=== PATIENT | female | born 1985 | race American Indian/Alaskan Native ===

== ENCOUNTER 2018-12-21 09:23 | Outpatient (CLI) | payer MEDICAID ==
[2018-12-21 10:19] VITALS: BP 102/63
[2018-12-21] MEDS ORDERED: LACTATED RINGERS 500 ML IV ONE (10:54)
== END 2018-12-21 11:10 | disposition home or self-care (01) ==
LOC: TRG 09:23
PROVIDERS: ATTEND Obstetrics & Gynecology
DX: O47.03 False labor before 37 completed weeks of gestation, third trimester (principal); Z3A.33 33 weeks gestation of pregnancy
CPT/HCPCS: 59025

== ENCOUNTER 2019-01-29 14:34 | Outpatient (CLI) | payer MEDICAID ==
[2019-01-29] MEDS ORDERED: LACTATED RINGERS 1,000 ML ONE (16:29)
[2019-01-29] MEDS ORDERED: LACTATED RINGERS ONE (16:29)
[2019-01-29] MEDS ORDERED: LACTATED RINGERS 1,000 ML IV ONE (16:42)
[2019-01-29 17:51] LABS: Bacteria,Urine 2+ /HPF (Negative); Bilirubin,Urine NEG (Negative); Blood,Urine NEG (Negative); Color,Urine Yellow (Yellow); Mucus,Urine FEW /HPF; Protein,Urine <15 mg/dL mg/dL (Negative); Urobilinogen,Urine < 2.0 mg/dL (<2.0)
--- NOTE | 2019-01-29 18:12 | Ultrasound Report ---
PROCEDURE: US OB LIMITED TECHNIQUE: Limited OB ultrasound HISTORY: tachycardia . Estimated age is 38 weeks 6 days. Evaluate MIKE and BPP COMPARISONS: None FINDINGS: LMP 05/02/2018 clinical Age : 38W 6 D LMP EDC 02/06/2019 Biophysical profile scoring 2 movement 2 tone 2 breathing 2fluid 8/8 overall score Presentation: Cephalic Activity: Monitored Placental location: Anterior Cardiac motion: 143 BPM using M-mode doppler Amniotic Fluid Volume: Adequate MIKE: 11.1 cm IMPRESSION: Single viable at 38 weeks 6 days with 8/8 biophysical profile score and MIKE 11.1 cm This document is electronically signed by Gali Shirley MD., January 29 2019 06:10:22 PM ET
--- NOTE | 2019-01-29 18:13 | Ultrasound Report ---
PROCEDURE: US OB BPP WO NON-STRESS TECHNIQUE: Limited OB ultrasound HISTORY: tachycardia . Estimated age is 38 weeks 6 days. Evaluate MIKE and BPP COMPARISONS: None FINDINGS: LMP 05/02/2018 clinical Age : 38W 6 D LMP EDC 02/06/2019 Biophysical profile scoring 2 movement 2 tone 2 breathing 2fluid 8/8 overall score Presentation: Cephalic Activity: Monitored Placental location: Anterior Cardiac motion: 143 BPM using M-mode doppler Amniotic Fluid Volume: Adequate MIKE: 11.1 cm IMPRESSION: Single viable at 38 weeks 6 days with 8/8 biophysical profile score and MIKE 11.1 cm This document is electronically signed by Gali Shirley MD., January 29 2019 06:11:32 PM ET
[2019-01-29 20:46] VITALS: BP 104/52
== END 2019-01-29 21:18 | disposition home or self-care (01) ==
LOC: TRG 14:34
PROVIDERS: ATTEND Obstetrics & Gynecology
DX: O98.313 Other infections with a predominantly sexual mode of transmission complicating pregnancy, third trimester (principal); A63.0 Anogenital (venereal) warts; O36.8330 Maternal care for abnormalities of the fetal heart rate or rhythm, third trimester, not applicable or unspecified; O47.1 False labor at or after 37 completed weeks of gestation; Z3A.38 38 weeks gestation of pregnancy
CPT/HCPCS: 59025; 76815; 76819; 81001; J7120

== ENCOUNTER 2019-01-30 13:09 | Outpatient (CLI) | payer MEDICAID ==
[2019-01-30 13:30] VITALS: BP 115/59
== END 2019-01-30 14:35 | disposition home or self-care (01) ==
LOC: TRG 13:09
PROVIDERS: ATTEND Obstetrics & Gynecology
DX: O47.1 False labor at or after 37 completed weeks of gestation (principal); O99.513 Diseases of the respiratory system complicating pregnancy, third trimester; J45.909 Unspecified asthma, uncomplicated; Z3A.38 38 weeks gestation of pregnancy
CPT/HCPCS: 59025

== ENCOUNTER 2019-02-09 07:48 | Inpatient (IN) | payer MEDICAID, OTHER ==
[2019-02-09 11:33] LABS: Basophils # (Auto) 0.1 K/mm3 (0.0-0.1); Basophils % (Auto) 0.6 % (0.0-1.8); Eosinophils # (Auto) 0.2 K/mm3 (0.0-0.4); Eosinophils % (Auto) 1.8 % (0.0-4.3); Hematocrit 32.9 % (30.3-42.9); Hemoglobin 10.6 gm/dl (10.1-14.3); Lymphocytes # (Auto) 1.4 K/mm3 (1.2-5.4); Lymphocytes % (Auto) 15.1 % (13.4-35.0); Mean Corpuscular HGB Conc 32 % (30-34); Mean Corpuscular Volume 73 fl (79-97); Monocytes # (Auto) 0.7 K/mm3 (0.0-0.8); Monocytes % (Auto) 7.2 % (0.0-7.3); Platelet Count 294 K/mm3 (140-440); Red Blood Count 4.54 M/mm3 (3.65-5.03); Red Cell Distribution Width 17.7 % (13.2-15.2)
[2019-02-09 11:45] LABS: Amphetamine Screen,Urine PRESUMPTIVE NEGATIVE; Benzodiazepines Screen,Urine PRESUMPTIVE NEGATIVE; Cannabinoid Screen,Urine PRESUMPTIVE NEGATIVE; Cocaine Screen,Urine PRESUMPTIVE NEGATIVE; Methadone Screen,Urine PRESUMPTIVE NEGATIVE; Opiate Screen,Urine PRESUMPTIVE NEGATIVE
[2019-02-09 11:46] LABS: Bacteria,Urine 2+ /HPF (Negative); Bilirubin,Urine NEG (Negative); Blood,Urine NEG (Negative); Color,Urine Straw (Yellow); Protein,Urine <15 mg/dL mg/dL (Negative); Urobilinogen,Urine < 2.0 mg/dL (<2.0); WBC,Urine < 1.0 /HPF (0.0-6.0)
[2019-02-09 11:51] LABS: Alanine Aminotransferase 10 units/L (7-56); Albumin 3.2 g/dL (3.9-5); BUN/Creatinine Ratio 7; Blood Urea Nitrogen 4 mg/dL (7-17); Calcium 9.1 mg/dL (8.4-10.2); Hemolysis Index 7
--- NOTE | 2019-02-09 12:34 | Ultrasound Report ---
PROCEDURE: US OB LIMITED HISTORY: MIKE, placental integrity FINDINGS: Real-time ultrasound the pelvis was performed with attention to the gravid uterus. These images demonstrate a live intrauterine gestation in cephalic lie, with biophysical profile of 8 of 8. cardiac activity is present at 138 bpm. There is an anterior placenta, grade 3 placenta. There is no placental abruption. Amniotic fluid index was 11.0 cm. IMPRESSION: Biophysical profile 8 of 8 Amniotic fluid index 11.0 cm No placental abruption This document is electronically signed by Rex Delong MD., February 09 2019 12:32:36 PM ET
--- NOTE | 2019-02-09 12:34 | Ultrasound Report ---
PROCEDURE: US OB BPP WO NON-STRESS HISTORY: BPP FINDINGS: Real-time ultrasound the pelvis was performed with attention to the gravid uterus. These images demonstrate a live intrauterine gestation in cephalic lie, with biophysical profile of 8 of 8. cardiac activity is present at 138 bpm. There is an anterior placenta, grade 3 placenta. There is no placental abruption. Amniotic fluid index was 11.0 cm. IMPRESSION: Biophysical profile 8 of 8 Amniotic fluid index 11.0 cm No placental abruption This document is electronically signed by Rex Delong MD., February 09 2019 12:32:11 PM ET
--- NOTE | 2019-02-09 12:53 | History and Physical Report ---
History of Present Illness Date of examination: 02/09/19 Date of admission: 02/09/2019 Chief complaint: Contractions, right leg pain History of present illness: 33 year old female presents to L&D complaining of contractions and right calf pain. States calf pain began last night and contractions began this morning. Patient denies leaking of fluid or vaginal bleeding. Patient reports good movement today but states she experienced decreased movement yesterday and the day before. Patient denies falls or abdominal trauma. Patient denies headache, dizziness, chest pain, SOB, cough, or fatigue. Patient states she receives regular care at [facility]. No records are available. Patient states she is scheduled for primary section tomorrow due to extensive condyloma in genital area. LMP 05/02/2018. EDC 02/06/2019 (pt. states this was based on ultrasound done at 20 weeks gestation). We do not yet have a copy of that US since no records available today in L&D. significant for the following: Obesity (care was co-managed with [facility]), decreased movement, extensive genital condyloma, bleeding in first trimester (subchorionic hemorrhage), anemia (treated with oral iron), and asthma (treated with Albuterol inhaler). Patient states her current medications at home are vitamins, iron supplements, and albuterol. labs are not available, but records have been requested and should be available by tomorrow morning. We do have a GBS test result; GBS is positive. 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 denies: abnormal PAP smear, chlamydia, gonorrhea, hepatitis B, hepatitis C, herpes, HIV, syphilis, trichomonas Family/Genetic History: diabetes, hypertension, cancer Social history: single, lives with family, full code. denies: smoking, alcohol abuse, prescription drug abuse, IV drug use - Obstetrical History Expected Date of Delivery: 02/06/19 (Per patient report (records have been requested)) Actual Gestation: 40 Week(s) 3 Day(s) : 3 Para: 0 Hx # Term Pregnancies: 0 Number of Pregnancies: 0 Spontaneous Abortions: 2 (2 SABs (first trimester)) Induced : 0 Number of Living Children: 0 Medications and Allergies Allergies Allergy/AdvReac Type Severity Reaction Status Date / Time azithromycin [From Zithromax] Allergy Swelling Verified 01/10/19 19:45 Home Medications Medication Instructions Recorded Confirmed Last Taken Type Vit-Fe Fumar-FA [ 1 tab PO DAILY MDD 1 01/11/19 02/09/1902/09 06:00 History Vitamin] 1 Review of Systems All systems: negative (contractions and right calf pain) - Vital Signs Vital signs: Vital Signs Pulse BP 120 H 118/71 02/09/19 08:15 02/09/19 08:15 Temp Pulse Resp BP Pulse Ox 98.2 F 112 H 18 118/71 92 02/09/19 11:13 02/09/19 10:18 02/09/19 11:13 02/09/19 08:15 02/09/19 10:18 - Physical Exam Cardiovascular: Regular rate, Normal S1, Normal S2, No murmurs Lungs: Positive: Clear to auscultation Abdomen: Positive: normal appearance, soft, normal bowel sounds. Negative: distention, tenderness, guarding, rigidity Genitourinary (Female): Positive: other (extensive vulvar condyloma) Uterus: Positive: enlarged (gravid) Extremities: Positive: normal. Negative: tenderness (negative lonnie's sign, no palpable cord, no erythema), edema - Obstetrical FHR: category 1 FHR comments: BPP 8/8; MIKE 11 cm; no signs of abruption on US; US EGA 36 weeks, 5 days Uterine Contraction Monitor Mode: External Cervical Dilatation: 0 (SVE: closed, thick, high per RN upon pt. arrival) Uterine Contraction Pattern: Irregular (resolved with rest) Uterine Contraction Intensity: Mild Results Result Diagrams: 02/09/19 11:10 02/09/19 11:10 Abnormal lab results 02/09/19 02/09/19 Range/Units 11:10 11:10 MCV 73 L (79-97) fl MCH 23 L (28-32) pg RDW 17.7 H (13.2-15.2) % Seg Neutrophils % 75.3 H (40.0-70.0) % Sodium 136 L (137-145) mmol/L BUN 4 L (7-17) mg/dL Creatinine 0.6 L (0.7-1.2) mg/dL Alkaline Phosphatase 155 H (35-129) units/L Albumin 3.2 L (3.9-5) g/dL All other labs normal. Assessment and Plan A: at 40 weeks, 3 days gestation based on patient's stated EDC of 02/06/19 (our US today in L&D has CGA of 36 weeks, 5 days). Not in active labor. GBS positive. Extensive vulvar condyloma; due to vulvar condyloma patient was scheduled for primary delivery on 02/10/19. No records available in L&D. Maternal obesity. Mild maternal tachycardia. Right leg pain. Mild anemia of . Asthma (uses Albuterol inhaler rarely). P: Admit patient. Obtain records from [facility]. Venous doppler US of right lower extremity. Continuous EFM. IV hydration. VS monitoring. Keep patient in hospital overnight until able to obtain records; primary OB will be back radiation control specialist tomorrow AM and can obtain records (with confirmation of EDC) prior to scheduled primary C/S tomorrow. Consulted with Dr. Dugan re: all of the above and interventions taken and he states he is in agreement with plan of observing patient overnight until primary OB can obtain records, then proceed with scheduled primary C/S once confirmation of patient's EDC is obtained.
[2019-02-09] MEDS ORDERED: PEPCID IV ONE (13:00)
[2019-02-09] MEDS ORDERED: PITOCin/NS 20 UNIT/1000ML DRIP 20 UNITS/1,000 ML BAG IV SCH ×2 (13:00)
[2019-02-09] MEDS ORDERED: REGLAN IV ONE (13:00)
[2019-02-09] MEDS ORDERED: LACTATED RINGERS 1,000 ML IV SCH (13:00)
[2019-02-09] MEDS ORDERED: BICITRA PO ONE (13:00)
[2019-02-09] MEDS ORDERED: ANCEF/STERILE WATER 2 GM/20 ML 2 GM/20 ML SYRINGE IV NR (13:00)
--- NOTE | 2019-02-09 14:03 | Ultrasound Report ---
PROCEDURE: US OB FOLLOW UP TECHNIQUE: Limited obstetrical ultrasound performed. HISTORY: Calculate gestational age COMPARISON: None FINDINGS: There is a single live intrauterine in cephalic position. Clinical indication provided ANIL of 02/06/2019-40 weeks 3 days. Today's measurements BPD: 9.04 cm-36 weeks 4 days HC: 32.75 cm-37 weeks 1 day. AC: 32.92 cm-36 weeks 6 days FL: 7.05 cm-36 weeks 1 day Average age by ultrasound-36 weeks 5 days with corresponding ANIL of 03/04/2019. Estimated weight is 3002 mg which is 7th percentile for clinical age of 40 weeks 3 days. Cardiac activity documented at 135 bpm. IMPRESSION: Today's measurements correspond to average age of 36 weeks 5 days. This is somewhat disc repant with provided clinical age of 40 weeks 3 days. The estimated weight of 3002 g is 7th per centile for this gestational age. Correlate clinically and with history. Note that I have several divine or exams to compare but no measurements were obtained on any of the available prior studies. This document is electronically signed by Ree Nicholson MD., February 09 2019 02:01:39 PM ET
--- NOTE | 2019-02-09 15:16 | Vascular Lab Report ---
PROCEDURE: VL VENOUS DUPLEX LE RT TECHNIQUE: Grayscale, color flow and spectral waveform images were obtained of right lower extremity . HISTORY: Right leg pain COMPARISON: None FINDINGS: There is no deep venous thrombosis seen in the right lower extremity. Flow is demonstrated by color flow and spectral waveform imaging. There is appropriate wall compression and augmentation. There is no superficial venous thrombus seen. IMPRESSION: There is no evidence for DVT in right lower extremity. This document is electronically signed by Ree Nicholson MD., February 09 2019 03:14:07 PM ET
--- NOTE | 2019-02-09 16:02 | Anesthesia Consultation ---
Anesthesia Consult and Med Hx Date of service: 02/09/19 - Airway Anesthetic Teeth Evaluation: Crowns ROM Head & Neck: Adequate Mental/Hyoid Distance: Adequate Mallampati Class: Class II Intubation Access Assessment: Probably Good - Pulmonary Exam CTA: Yes - Cardiac Exam Cardiac Exam: RRR - Pre-Operative Health Status ASA Pre-Surgery Classification: ASA2 Proposed Anesthetic Plan: Epidural - Pulmonary Hx Smoking: No Hx Asthma: Yes (no meds at this time or meds) Hx Respiratory Symptoms: No SOB: No COPD: No Home Oxygen Therapy: No Hx Pneumonia: No Hx Sleep Apnea: No - Cardiovascular System Hx Hypertension: No Hx Coronary Artery Disease: No Hx Heart Attack/AMI: No Hx Angina: No Hx Percutaneous Transluminal Coronary Angioplasty (PTCA): No Hx Cardia Arrhythmia: No Hx Pacemaker: No Hx Internal Defibrillator: No Hx Valvular Heart Disease: No Hx Heart Murmur: No Hx Peripheral Vascular Disease: No - Central Nervous System Hx Neuromuscular Disorder: No Hx Seizures: No CVA: No Hx Back Pain: No Hx Psychiatric Problems: No - Gastrointestinal Hx Ulcer: No Hx Gastroesophageal Reflux Disease: No - Endocrine Hx Renal Disease: No Hx End Stage Renal Disease: No Hx Cirrhosis: No Hx Liver Disease: No Hx Insulin Dependent Diabetes: No Hx Non-Insulin Dependent Diabetes: No Hx Thyroid Disease: No Hx Hypothyroidism: No Hx Hyperthyroidism: No - Hematic Hx Anemia: Yes (with meds) Hx Sickle Cell Disease: No - Other Systems Hx Alcohol Use: No Hx Substance Use: No Hx Cancer: No Hx Obesity: No
--- NOTE | 2019-02-09 16:03 | Anesthesia Day of Surgery ---
Anesthesia Day of Surgery - Day of Surgery Patient Examined: Yes Patient H&P Reviewed: Yes Patient is NPO: Yes (since 12 mn on 02/09) Beta Blockers: No Cardiac Clearance: No Pulmonary Clearance: No Nicholas's Test: N/A
[2019-02-10] MEDS: LACTATED RINGERS 1,000 ML IV SCH ×2 (04:30→07:15)
[2019-02-10] MEDS ORDERED: BICITRA PO ONE (05:09)
[2019-02-10] MEDS ORDERED: PEPCID IV ONE (05:10)
[2019-02-10] MEDS ORDERED: REGLAN IV ONE (05:10)
[2019-02-10] MEDS ORDERED: PITOCin/NS 20 UNIT/1000ML DRIP 20 UNITS/1,000 ML BAG IV SCH ×2 (07:00→10:00)
[2019-02-10] MEDS ORDERED: NEO SYNEPHRINE/NS Syringe(OR USE) IV ONE ×2 (09:17→09:56)
[2019-02-10] MEDS ORDERED: QUELICIN ONE (09:18)
[2019-02-10] MEDS ORDERED: XYLOCAINE MPF 2% ONE ×2 (09:21)
[2019-02-10] MEDS ORDERED: D5LR 1,000 ML IV SCH (10:00)
--- NOTE | 2019-02-10 10:00 | Operative Report ---
Operative Report Operative Report: Date of procedure: 02/10/2019 Pre-operative diagnosis: 1. Intrauterine at 40-4/7 weeks 2. Extens saji vaginal condylomas 3. Positive GBS Post-operative diagnosis: Same Procedure name(s): Primary low transverse section Surgeon: Rodriguez Borrero MD Assembly Cleaner: None Anesthesia: Spinal anesthesia by Dr. Reyes EBL: 700 mL Findings: A 3058 g male infant Apgars 8 at 1 minute 9 at 5 minutes. Clear amniotic fluid. Normal uterus. Normal tubes and ovaries bilaterally. Procedure: After the patient was prepped and draped in usual sterile fashion, and after satisfactory level of epidural anesthesia was obtained, the skin knife was used to make a transverse skin incision. The incision was excised down to layer of the fascia, which was nicked in the midline and extended laterally using the Bovie cautery. The rectus muscles were dissected off the rectus fascia both superiorly and inferiorly. The rectus bellies in the midline, and the peritoneum was entered under direct visualization. The peritoneal incision was extended superiorly and inferiorly. A bladder flap was created and the bladder blade was then placed. The uterus was scored in a curvilinear linear fashion, entered in the midline revealing clear amniotic fluid. The 's head was delivered onto the surgical field, and the oropharynx and nasopharynx were bulb suctioned. The rest of the 's body was delivered, cord was doubly clamped and cut and the infant was handed to the waiting respiratory team. Cord blood was then obtained. The placenta was manually removed from the uterus, and the uterus removed from its normal anatomical position. After gentle uterine lavage, the incision was inspected and found to be without extensions. It was then closed in 2 layers using 0 Vicryl suture in a running interlocking fashion, the second layer imbricating the first. After good hemostasis was achieved, copious amounts or irrigation was performed, and the gutters were suctioned free of blood and blood clots. Tisseel sealant was sprayed across the uterine incision. The uterus was then returned to its normal anatomical position, and after excellent hemostasis assured, the peritoneum was re-approximated using 3-0 Vicryl suture in a running interlocking fashion, and then the rectus muscles were re-approximated using 3-0 Vicryl suture in a [id number] configuration. The fascia was then re- approximated using 0 Vicryl suture in running interlocking fashion. The subcutaneous layer was made hemostatic using Bovie cautery, the Tisseel sealant was sprayed across the fascial incision and the skin edges re-approximated using 4-0 Vicryl suture in a sub-cuticular fashion. Patient tolerated the procedure well was transported to recovery in stable condition.
[2019-02-10] MEDS ORDERED: NACL 0.9% 1000 ML 1,000 ML ONE (10:20)
--- NOTE | 2019-02-10 10:23 | Post Anesthesia Evaluation ---
- Post Anesthesia Evaluation Patient Participated: Yes Airway Patent: Yes Stable Respiratory Function: Yes Nausea/Vomiting: No Temp > 96.8F: Yes Pain Manageable: Yes Adequeate Hydration: Yes Anesthesia Complications: No Block Receding Appropriately: Yes Patient on Ventilator: No
[2019-02-10] MEDS ORDERED: TUCKS PAD TP PRN (11:00)
[2019-02-10] MEDS ORDERED: BENADRYL IV PRN (11:00)
[2019-02-10] MEDS ORDERED: DILAUDID IV PRN ×2 (11:00)
[2019-02-10] MEDS ORDERED: TYLENOL PO PRN (11:00)
[2019-02-10] MEDS ORDERED: MYLICON PO PRN (11:30)
[2019-02-10] MEDS ORDERED: PHENERGAN PR PRN (11:30)
[2019-02-10] MEDS ORDERED: PHENERGAN PO PRN (11:30)
[2019-02-10] MEDS ORDERED: NARCAN 0.4 MG/1 ML IV PRN ×2 (11:30)
[2019-02-10] MEDS ORDERED: LANSINOH TP PRN (11:30)
[2019-02-10] MEDS ORDERED: TORADOL IV PRN (11:30)
[2019-02-10] MEDS ORDERED: SODIUM CHLORIDE FLUSH SYRINGE 10 ML IV PRN ×2 (12:00)
[2019-02-10] MEDS ORDERED: ZOFRAN IV PRN (12:00)
[2019-02-10] MEDS: PERCOCET 5/325 PO PRN (18:26)
[2019-02-10] MEDS: ANCEF/NS 1 GM/50 ML 1 GM/50 ML BAG IV SCH (18:30)
[2019-02-10 21:14] LABS: Hematocrit 28.8 % (30.3-42.9); Hemoglobin 9.1 gm/dl (10.1-14.3)
[2019-02-10] MEDS: IBUPROFEN PO PRN (21:43)
[2019-02-10] MEDS ORDERED: SENOKOT PO PRN (22:00)
[2019-02-10] MEDS ORDERED: MILK OF MAGNESIA PO PRN (22:00)
[2019-02-11] MEDS: PERCOCET 5/325 PO PRN ×3 (00:03→16:27)
[2019-02-11] MEDS: ANCEF/NS 1 GM/50 ML 1 GM/50 ML BAG IV SCH (02:06)
[2019-02-11] MEDS ORDERED: BOOSTRIX IM ONE (06:00)
--- NOTE | 2019-02-11 09:08 | Progress Note ---
Assessment and Plan - Patient Problems (1) Status post Onset Date: 02/11/19 Current Visit: Yes Status: Resolved Plan to address problem: A: S/P C Section - POD #1 Doing well Asymptomatic anemia - stable P: Continue RPOC Anticipate discharge in 24-48hrs (2) Acute blood loss anemia Onset Date: 02/11/19 Current Visit: Yes Status: Resolved Subjective - Subjective Date of service: 02/11/19 Principal diagnosis: s/p C Section - POD #1 Interval history: Pt is feeling well without complaints. She is tolerating a reg diet without nausea or vomiting, ambulating and voiding without difficulty. Patient reports: appetite normal, voiding normally, pain well controlled, flatus, ambulating normally, no dizzy ambulation, no nauseated : doing well, nursing well, bottle feeding Objective - Vital Signs Latest vital signs: Vital Signs Temp Pulse Resp BP BP Pulse Ox 02/11/19 07:33 97.9 F 91 H 20 109/54 99 02/11/19 05:50 20 02/11/19 04:35 98.2 F 80 20 104/72 98 02/11/19 00:03 18 02/10/19 23:25 98.2 F 93 H 20 114/72 96 02/10/19 21:43 20 02/10/19 20:00 98.2 F 109 H 20 126/73 96 02/10/19 18:26 20 02/10/19 16:00 97.4 F L 101 H 18 104/61 02/10/19 14:00 18 02/10/19 11:59 97.6 F 20 118/73 02/10/19 11:46 20 Intake and Output 02/10/19 02/11/19 02/11/19 22:59 06:59 14:59 Intake Total 370 480 Output Total 700 1400 Balance -330 -920 Intake: IV 50 ANCEF/NS 1 GM/50 ML 1 gm 50 In 50 ml @ 100 mls/hr IV Q8H [facility] Rx#:[id number] Oral 320 480 Output: Urine 700 1400 Indwelling Catheter 700 Void 1400 Other: Total, Intake Amount 320 240 Total, Output Amount 300 800 # Voids Indwelling Catheter 1 Void 2 - Exam Cardiovascular: Present: Regular rate Abdomen: Present: normal appearance, soft Uterus: Present: normal, firm, fundal height below umbilicus Extremities: Present: normal Incision: Present: normal, dry, intact, dressed - Labs Labs: Abnormal lab results 02/10/19 Range/Units 20:44 Hgb 9.1 L (10.1-14.3) gm/dl Hct 28.8 L (30.3-42.9) % Laboratory Tests 02/09/19 02/09/19 02/09/19 11:10 11:10 11:10 WBC 9.5 RBC 4.54 Hgb 10.6 Hct 32.9 MCV 73 L MCH 23 L MCHC 32 RDW 17.7 H Plt Count 294 Lymph % (Auto) 15.1 [place] % (Auto) 7.2 Eos % (Auto) 1.8 Baso % (Auto) 0.6 Lymph # 1.4 [place] # 0.7 Eos # 0.2 Baso # 0.1 Seg Neutrophils % 75.3 H Seg Neutrophils # 7.2 Sodium Potassium Chloride Carbon Dioxide Anion Gap BUN Creatinine Estimated GFR BUN/Creatinine Ratio Glucose Calcium Total Bilirubin AST ALT Alkaline Phosphatase Total Protein Albumin Albumin/Globulin Ratio Urine Color Straw Urine Turbidity Clear Urine pH 7.0 Ur Specific [place] 1.005 Urine Protein <15 mg/dl Urine Glucose (UA) Neg Urine Ketones Neg Urine Blood Neg Urine Nitrite Neg Urine Bilirubin Neg Urine Urobilinogen < 2.0 Ur Leukocyte Esterase Neg Urine WBC (Auto) < 1.0 Urine RBC (Auto) 1.0 U Epithel Cells (Auto) 3.0 Urine Bacteria (Auto) 2+ Urine Opiates Screen Presumptive negative Urine Methadone Screen Presumptive negative Ur Barbiturates Screen Presumptive negative Ur Phencyclidine Scrn Presumptive negative Ur Amphetamines Screen Presumptive negative U Benzodiazepines Scrn Presumptive negative Urine Cocaine Screen Presumptive negative U Marijuana (THC) Screen Presumptive negative Drugs of Abuse Note Disclamer RPR Blood Type Antibody Screen 02/09/19 02/09/19 02/09/19 11:10 12:50 15:13 WBC RBC Hgb Hct MCV MCH MCHC RDW Plt Count Lymph % (Auto) [place] % (Auto) Eos % (Auto) Baso % (Auto) Lymph # [place] # Eos # Baso # Seg Neutrophils % Seg Neutrophils # Sodium 136 L Potassium 4.3 Chloride 103.1 Carbon Dioxide 22 Anion Gap 15 BUN 4 L Creatinine 0.6 L Estimated GFR > 60 BUN/Creatinine Ratio 7 Glucose 89 Calcium 9.1 Total Bilirubin 0.30 AST 17 ALT 10 Alkaline Phosphatase 155 H Total Protein 6.5 Albumin 3.2 L Albumin/Globulin Ratio 1.0 Urine Color Urine Turbidity Urine pH Ur Specific [place] Urine Protein Urine Glucose (UA) Urine Ketones Urine Blood Urine Nitrite Urine Bilirubin Urine Urobilinogen Ur Leukocyte Esterase Urine WBC (Auto) Urine RBC (Auto) U Epithel Cells (Auto) Urine Bacteria (Auto) Urine Opiates Screen Urine Methadone Screen Ur Barbiturates Screen Ur Phencyclidine Scrn Ur Amphetamines Screen U Benzodiazepines Scrn Urine Cocaine Screen U Marijuana (THC) Screen Drugs of Abuse Note RPR Nonreactive Blood Type O POSITIVE Antibody Screen Negative 02/10/19 20:44 WBC RBC Hgb 9.1 L Hct 28.8 L MCV MCH MCHC RDW Plt Count Lymph % (Auto) [place] % (Auto) Eos % (Auto) Baso % (Auto) Lymph # [place] # Eos # Baso # Seg Neutrophils % Seg Neutrophils # Sodium Potassium Chloride Carbon Dioxide Anion Gap BUN Creatinine Estimated GFR BUN/Creatinine Ratio Glucose Calcium Total Bilirubin AST ALT Alkaline Phosphatase Total Protein Albumin Albumin/Globulin Ratio Urine Color Urine Turbidity Urine pH Ur Specific [place] Urine Protein Urine Glucose (UA) Urine Ketones Urine Blood Urine Nitrite Urine Bilirubin Urine Urobilinogen Ur Leukocyte Esterase Urine WBC (Auto) Urine RBC (Auto) U Epithel Cells (Auto) Urine Bacteria (Auto) Urine Opiates Screen Urine Methadone Screen Ur Barbiturates Screen Ur Phencyclidine Scrn Ur Amphetamines Screen U Benzodiazepines Scrn Urine Cocaine Screen U Marijuana (THC) Screen Drugs of Abuse Note RPR Blood Type Antibody Screen
[2019-02-11] MEDS: IBUPROFEN PO PRN ×2 (10:01→20:55)
[2019-02-11] MEDS: FEOSOL PO SCH (10:01)
[2019-02-11] MEDS: PRENATAL VITAMIN PO SCH (10:01)
[2019-02-11] MEDS ORDERED: M-M-R II VACCINE SUB-Q ONE (11:00)
[2019-02-11] MEDS: NORCO 5/325 PO PRN (20:55)
[2019-02-12] MEDS: PERCOCET 5/325 PO PRN ×2 (04:28→20:34)
[2019-02-12] MEDS: PRENATAL VITAMIN PO SCH ×2 (10:41→11:10)
[2019-02-12] MEDS: FEOSOL PO SCH ×2 (11:09→11:11)
--- NOTE | 2019-02-12 12:31 | Progress Note ---
Assessment and Plan - Patient Problems (1) Status post Onset Date: 02/11/19 Current Visit: Yes Status: Resolved Plan to address problem: A: S/P C Section - POD #2 Doing well Asymptomatic anemia - stable P: Continue RPOC May go home tomorrow. (2) Acute blood loss anemia Onset Date: 02/11/19 Current Visit: Yes Status: Resolved Subjective - Subjective Date of service: 02/12/19 Principal diagnosis: s/p C Section - POD #2 Interval history: Pt is feeling well without complaints. She is tolerating a reg diet without nausea or vomiting, ambulating and voiding without difficulty. Patient reports: appetite normal, voiding normally, pain well controlled, ambulating normally, no dizzy ambulation, no flatus, no nauseated [place]: doing well, nursing well, bottle feeding Objective - Vital Signs Latest vital signs: Vital Signs Temp Pulse Resp BP BP Pulse Ox 02/12/19 07:49 97.6 F 96 H 18 103/64 02/12/19 01:47 97.7 F 94 H 20 115/69 98 02/11/19 15:31 97.8 F 96 H 20 112/70 98 Intake and Output 02/11/19 02/12/19 02/12/19 22:59 06:59 14:59 Intake Total 360 240 480 Balance 360 240 480 Intake: Oral 360 240 480 Other: Total, Intake Amount 360 240 480 # Voids Void 1 1 - Exam Abdomen: Present: normal appearance, soft Uterus: Present: normal, firm, fundal height below umbilicus Incision: Present: normal, dry, intact
[2019-02-12] MEDS: IBUPROFEN PO PRN (13:05)
[2019-02-13] MEDS: IBUPROFEN PO PRN ×2 (03:42→11:05)
[2019-02-13] MEDS: NORCO 5/325 PO PRN ×2 (03:42→11:00)
[2019-02-13] MEDS: FEOSOL PO SCH (09:04)
[2019-02-13] MEDS: PRENATAL VITAMIN PO SCH (09:04)
--- NOTE | 2019-02-13 09:45 | Discharge Summary ---
Providers - Providers Date of Admission: 02/09/19 07:49 Date of discharge: 02/13/19 Attending physician: TONI MONTENEGRO Primary care physician: TONI MONTENEGRO Hospitalization Reason for admission: section, IUP at term, other (Extensive vaginal condyloma) Delivery: Procedure: section, primary low transverse Episiotomy: none Laceration: none Incision: normal, dry, intact Other procedures: none complications: none Discharge diagnosis: IUP at term delivered Coyle baby: male Hospital course: Pt is a 33 year old BF EDC 02/06/19; EGA 40 4/7 weeks presented to L&D complaining of contractions and right calf pain. She denied leaking of fluid or vaginal bleeding, and reported good movement. She denied falls or abdominal trauma, headache, dizziness, chest pain, SOB, cough, or fatigue. She received care at [facility], and was scheduled for primary section due to extensive condyloma in genital area. She underwent an uncomplicated C Section and tolerated the procedure well. By POD #2 she was tolerating a reg diet without nausea or vomiting, ambulating and voiding without difficulty. She was therefore discharged to home on POD #3 in stable condition. Condition at discharge: Good Disposition: DC-01 TO HOME OR SELFCARE - Discharge Diagnoses (1) Status post Status: Resolved (2) Acute blood loss anemia Status: Resolved Plan - Discharge Medications Prescriptions: Ferrous Sulfate [Feosol 325 MG tab] 325 mg PO BID #60 tablet Ibuprofen [Motrin 800 MG tab] 800 mg PO Q6H PRN #30 tablet PRN Reason: Pain, Mild (1-3) HYDROcodone/APAP 5-325 [[place] 5-325 mg TAB] 1 each PO Q6HR PRN #30 tablet PRN Reason: Pain, Moderate (4-6) Vit-Fe Fumar-FA [ Vitamin] 1 each PO QDAY #30 tablet - Provider Discharge Summary Activity: routine, no sex for 6 weeks, no heavy lifting 4 weeks, no strenuous exercise Diet: routine Instructions: routine Additional instructions: [] Smoking cessation referral if applicable(refer to patient education folder for contact #) [] Refer to [facility]'s [facility] Booklet Call your doctor immediately for: * Fever > 100.5 * Heavy vaginal bleeding ( >1 pad per hour) * Severe persistent headache * Shortness of breath * Reddened, hot, painful area to leg or breast * Drainage or odor from incision. * Keep incision clean and dry at all times and follow doctor's instructions regarding bathing/showering - Follow up plan Follow up: TONI MONTENEGRO MD [Primary Care Provider] - 14 Days MARILEE HANSEN NP [Referring] - 14 Days
[2019-02-13 13:04] VITALS: BP 109/60
== END 2019-02-13 15:17 | disposition home or self-care (01) | DRG 765 ==
LOC: TRG 07:48 → LD 07:49 → TRG 15:02 → OB 02-10 11:31
PROVIDERS: ADMIT Obstetrics & Gynecology; ATTEND Obstetrics & Gynecology
PROC: 10D00Z1 Extraction of Products of Conception, Low, Open Approach (ICD-10-PCS; principal; 2019-02-10)
PROC: 3E0234Z Introduction of Serum, Toxoid and Vaccine into Muscle, Percutaneous Approach (ICD-10-PCS; 2019-02-11)
DX: O99.824 Streptococcus B carrier state complicating childbirth (principal); O98.32 Other infections with a predominantly sexual mode of transmission complicating childbirth; D62 Acute posthemorrhagic anemia; O99.89 Other specified diseases and conditions complicating pregnancy, childbirth and the puerperium; O99.52 Diseases of the respiratory system complicating childbirth; O99.214 Obesity complicating childbirth; O99.02 Anemia complicating childbirth; A63.0 Anogenital (venereal) warts; R00.0 Tachycardia, unspecified; J45.909 Unspecified asthma, uncomplicated; E66.9 Obesity, unspecified; Z3A.40 40 weeks gestation of pregnancy; Z37.0 Single live birth; Z83.3 Family history of diabetes mellitus; Z82.49 Family history of ischemic heart disease and other diseases of the circulatory system; Z80.9 Family history of malignant neoplasm, unspecified; Z88.1 Allergy status to other antibiotic agents; Z23 Encounter for immunization
CPT/HCPCS: 36415; 76815; 76816; 76819; 80053; 80307; 81001; 85014; 85018; 85025; 86592; 86850; 86900; 86901; G0378; J0330; J0690; J1170; J1885; J2370; J2405; J2590; J2765; J7030; J7120; J7121